=== PATIENT | female | born 1950 | race Hispanic/Latino ===

== ENCOUNTER → 2018-01-14 | Outpatient (CLI) | payer MEDICARE, OTHER ==
[~2018-01-14] MED LIST: IOPAMIDOL-370 100 ML VIAL IV ONE; IOPAMIDOL-370 75 ML VIAL IV ONE; ISOVUE-370 50ML VIAL IV ONE
== END | disposition home or self-care (01) ==
LOC: RAH 08:28
PROVIDERS: ATTEND Internal Medicine Cardiovascular Disease
DX: D35.00 Benign neoplasm of unspecified adrenal gland (principal); I70.90 Unspecified atherosclerosis
CPT/HCPCS: 74174; Q9967

== ENCOUNTER → 2021-06-13 | Outpatient (CLI) | payer MEDICARE, OTHER ==
[~2021-06-13] MED LIST changes: +IOHEXOL-350 75 ML VIAL IV ONE; -IOPAMIDOL-370 100 ML VIAL IV ONE; -IOPAMIDOL-370 75 ML VIAL IV ONE; -ISOVUE-370 50ML VIAL IV ONE
== END | disposition home or self-care (01) ==
LOC: RAH 12:13
PROVIDERS: ATTEND Internal Medicine
DX: I26.99 Other pulmonary embolism without acute cor pulmonale (principal); R06.02 Shortness of breath; R07.9 Chest pain, unspecified
CPT/HCPCS: 71275; Q9967

== ENCOUNTER 2021-09-09 05:45 | Day surgery (SDC) | payer MEDICARE, OTHER ==
[2021-09-06 16:23] LABS: BASOPHILS % (AUTO) 0.6 % (0.0-5.0); EOSINOPHILS % (AUTO) 0.3 % (0.0-8.0); HEMATOCRIT 37.7 % (36-48); LYMPHOCYTES % (AUTO) 10.4 % (21.0-51.0); MEAN CORPUSCULAR HGB CONC 31.8 g/dL (32.0-36.0); MEAN CORPUSCULAR VOLUME 97.4 fL (79-99); MONOCYTES % (AUTO) 4.1 % (3.0-13.0); NEUTROPHILS % (AUTO) 83.7 % (40.0-77.0); PLATELET COUNT (AUTO) 292 K/uL (130-400); RED BLOOD CELL COUNT(AUTO) 3.87 MIL/uL (4.00-5.50); RED CELL DISTRIBUTION WIDTH 14.7 % (11.0-15.5); WHITE BLOOD COUNT (AUTO) 6.7 K/uL (4.8-10.8)
[2021-09-06 16:25] LABS: APPEARANCE,URINE Clear (CLEAR); BILIRUBIN,URINE Negative (NEGATIVE); COLOR,URINE Yellow (YELLOW); GLUCOSE, URINE (UA) Negative (NEGATIVE); KETONES,URINE Negative (NEGATIVE); LEUKOCYTE ESTERASE ,URINE Negative (NEGATIVE); NITRATE,URINE Negative (NEGATIVE); OCCULT BLOOD,URINE Trace (NEGATIVE); PH,URINE 6.5 (5.0-8.0); PROTEIN,URINE Negative (NEGATIVE); UROBILINOGEN,URINE 0.2 mg/dL (0.2-1.0)
[2021-09-06 16:32] LABS: BACTERIA,URINE Rare /HPF (None Seen); CREATININE 0.8 mg/dL (0.5-1.5); POTASSIUM 4.2 mmol/L (3.5-5.1); WBC,URINE 0-1 /HPF (0-1)
[2021-09-06 16:33] LABS: INR 1.01 (0.85-1.15)
[2021-09-06 16:34] LABS: PARTIAL THROMBOPLASTIN TIME 25.4 SEC (26.3-35.5)
[2021-09-06 16:51] VITALS: BP 190/100
[2021-09-06 16:51] LABS: SQUAMOUS EPITHELIAL CELL,UR Rare /HPF (0-2)
[2021-09-09] VITALS (10 sets, daily range): BP systolic 71–145; BP diastolic 38–80
[~2021-09-09] VITALS: Ht 149.9 cm; Wt 35.9 kg
[~2021-09-09 05:45] MED LIST changes: +ALBU0.63 IH; +ALPR0.5T PO; +ALPR1TAB PO; +AMYL1CAP63 PO; +CALC-190 PO; +CYAN1TAB68 SL; +FOLI1 PO; +IBAN150T16 PO; +IMMODIUM PO; -IOHEXOL-350 75 ML VIAL IV ONE; +PRED10TA3 PO; +SODIUM CHLORIDE IH; +VITA1TAB22 PO
[2021-09-09] MEDS ORDERED: 0.9% NACL 500ML IV.SOLN 500 ML IV SCH (06:00)
[2021-09-09] MEDS ORDERED: 0.9%NACL 1000ML 1,000 ML IV ONE (06:09)
[2021-09-09] MEDS ORDERED: NITROGLYCERIN 50MG VIAL IV ONE (08:24)
[2021-09-09] MEDS ORDERED: SODIUM BICARB 50MEQ 50ML VIAL 50 ML ONE (08:24)
[2021-09-09] MEDS ORDERED: NICARDIPINE 25MG INJ IV ONE (08:24)
[2021-09-09] MEDS ORDERED: HEPARIN 10,000 UNIT/10ML (1,000 UNIT/ML) VIAL ONE (08:24)
[2021-09-09] MEDS ORDERED: IOHEXOL-350 50ML VIAL IV ONE (08:24)
[2021-09-09] MEDS ORDERED: BIVALIRUDIN 250 MG/VIAL IV ONE (08:24)
[2021-09-09] MEDS ORDERED: IOHEXOL 350 MG/ML 100ML INFUS..BTL IV ONE (08:25)
[2021-09-09] MEDS ORDERED: LIDOCAINE HCL 400MG/20ML VIAL ONE (08:25)
[2021-09-09] MEDS ORDERED: MIDAZOLAM HCL 1 MG/ML 2ML VIAL ONE ×2 (08:54→09:05)
[2021-09-09] MEDS ORDERED: MEPERIDINE-PF 25 MG/ML SYG ONE ×2 (08:54→09:05)
[2021-09-09] MEDS ORDERED: LABETALOL 20MG VIAL IV ONE (09:14)
[2021-09-09] MEDS ORDERED: 0.9%NACL 1000ML 1,000 ML IV SCH (10:00)
== END 2021-09-09 13:59 | disposition home or self-care (01) ==
LOC: DAH 05:45
PROVIDERS: ATTEND Internal Medicine Cardiovascular Disease
DX: I25.5 Ischemic cardiomyopathy (principal); F41.9 Anxiety disorder, unspecified; I10 Essential (primary) hypertension; I25.10 Atherosclerotic heart disease of native coronary artery without angina pectoris; M35.00 Sjogren syndrome, unspecified; M32.9 Systemic lupus erythematosus, unspecified; Z98.51 Tubal ligation status; M81.0 Age-related osteoporosis without current pathological fracture; Z79.82 Long term (current) use of aspirin; Z79.899 Other long term (current) drug therapy; Z79.01 Long term (current) use of anticoagulants; R94.39 Abnormal result of other cardiovascular function study
CPT/HCPCS: 36245; 36252; 36415; 71045; 75726; 75774; 80048; 81001; 82948; 85025; 85610; 85730; 93005; 93458; A4215; A4216; A4221; A4222; A4223 ×3; A4606; A4663; C1760; C1894; J1644; J2175 ×2; J2250 ×2; J3490 ×4; J7030; Q9965; Q9967; 96360; 96361; 99156; 99157; J0583

== ENCOUNTER → 2022-07-26 | Outpatient (CLI) | payer MEDICARE | END | disposition home or self-care (01) | LOC: SHCH 14:48 | PROVIDERS: ATTEND Internal Medicine Cardiovascular Disease | DX: I08.2 Rheumatic disorders of both aortic and tricuspid valves (principal) | CPT/HCPCS: 93306 ==